=== PATIENT | female | born 1985 | race Two or more races ===

== ENCOUNTER 2017-12-03 09:58 | Inpatient (IN) | payer OTHER ==
[2017-12-03] VITALS (12 sets, daily range): BP systolic 121–137; BP diastolic 73–89
[~2017-12-03] VITALS: Ht 160 cm; Wt 101.6 kg
[2017-12-03 11:20] LABS: BASOPHIL (%) 0.4 % (0-1); EOSINOPHIL (%) 0.6 % (0-5); HEMATOCRIT 38.1 % (36.0-46.0); HEMOGLOBIN 13.1 G/DL (11.9-15.5); IMMATURE GRANULOCYTE (%) 0.1 % (0.0-0.7); LYMPHOCYTE (%) 19.1 % (15-42); LYMPHOCYTE COUNT 1.3 K/uL (1.0-2.8); MCH 30.8 PG (29.0-34.0); MCHC 34.4 G/DL (30.0-36.0); MCV 89.4 FL (83-99); MONOCYTE COUNT 0.3 K/uL (0-0.8); NEUTROPHIL (%) 74.8 % (45-76); NEUTROPHIL COUNT 5.1 K/uL (1.8-6.4); PLATELET COUNT 219 K/uL (156-360); RBC DIS.WIDTH-CV 13.3 % (11.8-14.6); RBC DIS.WIDTH-SD 43.1 % (39-53); RED BLOOD COUNT 4.26 M/uL (3.80-5.20); WHITE BLOOD COUNT 6.8 K/uL (4.1-10.2)
[2017-12-03 11:53] LABS: ALBUMIN 3.9 G/DL (3.2-4.8); ALKALINE PHOSPHATASE 109 IU/L (3-129); ALT (GPT) 13 IU/L (3-49); AST (GOT) 14 IU/L (2-34); CHLORIDE 102 MEQ/L (99-109); CREATININE 0.6 MG/DL (0.6-1.3); GFR ESTIMATE (CALCULATED) > 59 mL/min/; POTASSIUM 4.2 MEQ/L (3.7-5.4); SODIUM 136 MEQ/L (136-147); TOTAL PROTEIN 6.6 G/DL (6.4-8.3); UREA NITROGEN (BUN) 7 mg/dL (9-23)
[2017-12-03 11:57] LABS: GLUCOSE 71 mg/dL (70-99); TOTAL BILIRUBIN 0.3 MG/DL (0.0-1.0)
[2017-12-03 12:42] LABS: UR CREATININE CONCENTRATION 28.1 MG/DL
[2017-12-04] VITALS (28 sets, daily range): BP systolic 113–156; BP diastolic 58–96
[2017-12-04] MEDS ORDERED: IBUPROFEN800 MG PO (15:42)
[2017-12-05 03:04] VITALS: BP 115/58
[2017-12-05 06:46] LABS: BASOPHIL (%) 0.3 % (0-1); EOSINOPHIL (%) 0.2 % (0-5); HEMATOCRIT 29.4 % (36.0-46.0); IMMATURE GRANULOCYTE (%) 0.3 % (0.0-0.7); LYMPHOCYTE (%) 15.3 % (15-42); LYMPHOCYTE COUNT 1.6 K/uL (1.0-2.8); MCH 30.5 PG (29.0-34.0); MCV 89.6 FL (83-99); MONOCYTE (%) 5.3 % (3-12); MONOCYTE COUNT 0.6 K/uL (0-0.8); NEUTROPHIL (%) 78.6 % (45-76); NEUTROPHIL COUNT 8.1 K/uL (1.8-6.4); PLATELET COUNT 201 K/uL (156-360); RBC DIS.WIDTH-CV 13.6 % (11.8-14.6); RBC DIS.WIDTH-SD 44.3 % (39-53); WHITE BLOOD COUNT 10.4 K/uL (4.1-10.2)
[2017-12-05 06:50] LABS: RED BLOOD COUNT 3.28 M/uL (3.80-5.20)
[2017-12-05 19:41] VITALS: BP 129/71
[2017-12-05 22:40] VITALS: BP 120/64
[2017-12-06 03:04] VITALS: BP 107/55
[2017-12-06 04:01] VITALS: BP 124/73
[2017-12-06] MEDS ORDERED: COLACE100 MG PO (10:33)
== END 2017-12-06 12:50 | disposition home or self-care (01) | DRG 775 ==
LOC: LDRP-OP 09:58 → 2WEST 09:59 → LDRP-OP 02-17 15:37
PROVIDERS: Advanced Practice Midwife; Midwife
PROC: 3E0P7GC Introduction of Other Therapeutic Substance into Female Reproductive, Via Natural or Artificial Opening (ICD-10-PCS; 2017-12-03)
PROC: 10E0XZZ Delivery of Products of Conception, External Approach (ICD-10-PCS; principal; 2017-12-04)
PROC: 0DQR0ZZ Repair Anal Sphincter, Open Approach (ICD-10-PCS; 2017-12-04)
PROC: 10907ZC Drainage of Amniotic Fluid, Therapeutic from Products of Conception, Via Natural or Artificial Opening (ICD-10-PCS; 2017-12-04)
PROC: 3E0S3BZ Introduction of Anesthetic Agent into Epidural Space, Percutaneous Approach (ICD-10-PCS; 2017-12-04)
PROC: 00HU33Z Insertion of Infusion Device into Spinal Canal, Percutaneous Approach (ICD-10-PCS; 2017-12-04)
DX: O13.4 Gestational [pregnancy-induced] hypertension without significant proteinuria, complicating childbirth (principal); O22.43 Hemorrhoids in pregnancy, third trimester; O14.94 Unspecified pre-eclampsia, complicating childbirth; Z37.0 Single live birth; Z3A.38 38 weeks gestation of pregnancy; O12.04 Gestational edema, complicating childbirth; O70.20 Third degree perineal laceration during delivery, unspecified; E66.9 Obesity, unspecified; O99.214 Obesity complicating childbirth; Z87.410 Personal history of cervical dysplasia; Z68.39 Body mass index [BMI] 39.0-39.9, adult; Z83.3 Family history of diabetes mellitus; Z82.49 Family history of ischemic heart disease and other diseases of the circulatory system; Z81.1 Family history of alcohol abuse and dependence; Z81.8 Family history of other mental and behavioral disorders; Z82.5 Family history of asthma and other chronic lower respiratory diseases
CPT/HCPCS: 80053; 82570; 84156; 85025; C1755; G0378; J3010; J7120